=== PATIENT | male | born 1960 | race Caucasian/White ===

== ENCOUNTER → 2021-01-04 | Outpatient (CLI) | payer OTHER ==
[~2021-01-04] MED LIST: ASPIRIN EC81 MG PO; ATORVASTATIN CA20 MG PO; CLOPIDOGREL75 MG PO; IOPAMIDOL 370 MG/ML 200 ML INFUS..BTL INJ ONE; METOPROLOL TART25 MG PO; SODIUM CHLORIDE 0.9% 50ML 50 ML ONE
[2021-01-04 08:57] LABS: BLOOD UREA NITROGEN 19 mg/dL (7-26); BUN/CREATININE RATIO 20 (6-25); CREATININE, SERUM 0.95 mg/dL (0.72-1.25); EST GLOMERULAR FILTRATION RATE > 60 ML/MIN (60-)
== END ==
LOC: CT 07:32
PROVIDERS: ATTEND Internal Medicine Gastroenterology
DX: R10.30 Lower abdominal pain, unspecified (principal)
CPT/HCPCS: 74177; 82565; 84520; Q9967

== ENCOUNTER → 2021-01-12 | Day surgery (SDC) | payer OTHER ==
[2021-01-10 11:26] LABS: BASOPHILS % 0.6 % (0.0-1.0); EOSINOPHILS # (AUTO) 0.2 (0.0-0.4); EOSINOPHILS % 3.4 % (0.0-6.0); HEMATOCRIT 38.1 % (38.2-49.6); LYMPHOCYTES # (AUTO) 1.9 (1.0-3.2); LYMPHOCYTES % 26.1 % (18.0-39.1); MEAN CORPUSCULAR HEMOGLOBIN 32.1 pg (28-32); MEAN CORPUSCULAR HGB CONC 34.1 g/dL (31-35); MEAN CORPUSCULAR VOLUME 94.1 fL (81-99); MONOCYTES # (AUTO) 0.7 (0.2-0.8); MONOCYTES % 9.4 % (4.4-11.3); NEUTROPHILS # (AUTO) 4.3 (2.1-6.9); NEUTROPHILS % 60.2 % (38.7-80.0); PLATELET COUNT 253 x10e3/uL (140-360); RED BLOOD COUNT 4.05 x10e6/uL (4.3-5.7); RED CELL DISTRIBUTION WIDTH 12.4 % (11.7-14.4)
[~2021-01-12] MED LIST changes: -IOPAMIDOL 370 MG/ML 200 ML INFUS..BTL INJ ONE; +LIDOCAINE HCL 2% LOCAL INJ 5 ML SDV VIAL INJ ONE; +PROPOFOL IV EMULSION 10 MG/ML 20 ML VIAL ONE; -SODIUM CHLORIDE 0.9% 50ML 50 ML ONE
[2021-01-12 14:20] VITALS: BP 108/77
== END | disposition home or self-care (01) ==
LOC: OR 10:28
PROVIDERS: ATTEND Internal Medicine Gastroenterology
DX: Z12.11 Encounter for screening for malignant neoplasm of colon (principal); K62.1 Rectal polyp; K57.30 Diverticulosis of large intestine without perforation or abscess without bleeding; K64.8 Other hemorrhoids; I25.10 Atherosclerotic heart disease of native coronary artery without angina pectoris; I10 Essential (primary) hypertension; I25.2 Old myocardial infarction; E78.00 Pure hypercholesterolemia, unspecified; Z88.8 Allergy status to other drugs, medicaments and biological substances; Z01.812 Encounter for preprocedural laboratory examination; Z20.822 Contact with and (suspected) exposure to COVID-19; Z79.82 Long term (current) use of aspirin; Z79.02 Long term (current) use of antithrombotics/antiplatelets; Z68.32 Body mass index [BMI] 32.0-32.9, adult; Z95.5 Presence of coronary angioplasty implant and graft
CPT/HCPCS: 36415; 45384; 85025; J2001; J2704; U0002; 45378